=== PATIENT | female | born 1990 | race Caucasian/White ===

== ENCOUNTER 2017-02-14 16:32 | Emergency (ER) | payer BC ==
[2017-02-14 16:41] VITALS: RESP 18
--- NOTE | 2017-02-14 16:41 | EDPHY ---
H & P HPI/ROS: HPI CHIEF COMPLAINT: Lightheadedness, carpal pedal spasm status post plasma donation HISTORY OF PRESENT ILLNESS: This patient very pleasant 27-year-old female no significant medical history does not take any daily medications, presents emergency room with carpopedal spasm lightheadedness. This occurred right after she donated plasma. She states she donated plasma before this is her 4th time doing at this particular unit. She donated and felt lightheaded she was unsure if she was dehydrated prior to doing this. She denies chest pain shortness of breath denies syncope. Currently she feels better upon arrival by EMS. Clinical exam here she appears dehydrated. Past Medical History: No significant medical history Past Surgical History: no significant surgical history Social History: Denies daily use drugs alcohol tobacco products Family History: Noncontributory ROS REVIEW OF SYSTEMS: A comprehensive 10 point review of systems is otherwise negative aside from elements mentioned in the history of present illness. Exam Constitutional appears well nontoxic, triage nursing summary reviewed, vital signs reviewed, awake/alert. Eyes normal conjunctivae and sclera, EOMI, PERRLA. HENT normal inspection, atraumatic, mucous membranes dry , no epistaxis, neck supple/ no meningismus, no raccoon eyes. Respiratory clear to auscultation bilaterally, normal breath sounds, no respiratory distress, no wheezing. Cardiovascular rate normal, regular rhythm, no murmur, no edema, distal pulses normal. Gastrointestinal soft, non-tender, no rebound, no guarding, normal bowel sounds, no distension, no pulsatile mass. Genitourinary no CVA tenderness. Musculoskeletal no midline vertebral tenderness, full range of motion, no calf swelling, no tenderness of extremities, no meningismus, good pulses, neurovascularly intact. Skin pink, warm, & dry, no rash, skin atraumatic. Neurologic awake, alert and oriented x 3, AAOx3, moves all 4 extremities equally, motor intact, sensory intact, CN II-XII intact, normal cerebellar, normal vision, normal speech. Psychiatric normal mood/affect. Heme/Lymph/Immune no lymphadenopathy. Differential Diagnosis: Includes but is not limited to in a particular order dehydration, electrolyte disturbance, dehydration, volume loss Medical Decision Making: plan for this patient IV fluid bolus, basic blood work , full core maker. Re-evaluation: 1735: patient feeling better after IV fluids 1 L. No chest pain or shortness of breath. He is tells me her lightheadedness is resolved. Plan for this patient is to road test. If she ambulates well without any symptoms or lower to go home. Drink lots of fluids stay. Return emergency room if any worsening symptoms including syncope, worsening lightheadedness, chest pain or shortness of breath she understands. Source: Patient, EMS Constitutional: Initial Vital Signs Temperature (C) 36.7 C 02/14/17 16:39 Heart Rate 91 02/14/17 16:39 Respiratory Rate 18 02/14/17 16:39 Blood Pressure 152/80 H 02/14/17 16:39 O2 Sat (%) 95 02/14/17 16:39 O2 Delivery Mode Room Air Allergies/Adverse Reactions: No Known Allergies Allergy (Unverified 02/14/17 16:38) Home Medications: Medication Instructions Recorded Bcp 02/14/17 Medical Decision Making - Data Points Laboratory Results: Laboratory Results 02/14/17 16:30 02/14/17 16:47 02/14/17 02/14/17 16:47 16:30 WBC 10.36 10^3/uL H 10^3/uL (3.80-9.50) RBC 5.36 10^6/uL H 10^6/uL (4.18-5.33) Hgb 15.8 g/dL g/dL (12.6-16.3) Hct 47.0 % % (38.0-47.0) MCV 87.7 fL fL (81.5-99.8) MCH 29.5 pg pg (27.9-34.1) MCHC 33.6 g/dL g/dL (32.4-36.7) RDW 13.1 % % (11.5-15.2) Plt Count 515 10^3/uL H 10^3/uL (150-400) MPV 10.3 fL fL (8.7-11.7) Neut % (Auto) 53.9 % % (39.3-74.2) Lymph % (Auto) 30.7 % % (15.0-45.0) Traill % (Auto) 5.9 % % (4.5-13.0) Eos % (Auto) 8.2 % H % (0.6-7.6) Baso % (Auto) 0.9 % % (0.3-1.7) Nucleat RBC Rel Count 0.0 % % (0.0-0.2) Absolute Neuts (auto) 5.59 10^3/uL 10^3/uL (1.70-6.50) Absolute Lymphs (auto) 3.18 10^3/uL H 10^3/uL (1.00-3.00) Absolute Monos (auto) 0.61 10^3/uL 10^3/uL (0.30-0.80) Absolute Eos (auto) 0.85 10^3/uL H 10^3/uL (0.03-0.40) Absolute Basos (auto) 0.09 10^3/uL 10^3/uL (0.02-0.10) Absolute Nucleated RBC 0.00 10^3/uL 10^3/uL (0-0.01) Immature Gran % 0.4 % % (0.0-1.1) Immature Gran # 0.04 10^3/uL 10^3/uL (0.00-0.10) Sodium 136 mEq/L mEq/L (134-144) Potassium 3.9 mEq/L mEq/L (3.5-5.2) Chloride 103 mEq/L mEq/L (97-110) Carbon Dioxide 19 mEq/l L mEq/l (22-31) Anion Gap 14 mEq/L mEq/L (8-16) BUN 13 mg/dL mg/dL (7-23) Creatinine 0.8 mg/dL mg/dL (0.6-1.0) Estimated GFR > 60 Glucose 132 mg/dL H mg/dL (70-100) Calcium 9.0 mg/dL mg/dL (8.5-10.4) Medications Given: Discontinued Medications Sodium Chloride (Ns) 1,000 mls @ 0 mls/hr IV ONCE ONE PRN Reason: Wide Open Stop: 02/14/17 16:48 Last Admin: 02/14/17 16:52 Dose: 1,000 mls Departure - Departure Disposition: Home, Routine, Self-Care Clinical Impression: Dehydration Condition: Good Instructions: Dehydration (ED) Additional Instructions: 1. drink lots of fluids today. 2.Return emergency room if you have any worsening symptoms questions or concerns. Referrals: Patient,NotPresent [Unknown] - As per Instructions
[2017-02-14] MEDS ORDERED: NS 1,000 ML IV ONE (16:47)
[2017-02-14 16:57] LABS: % IMMATURE GRANULYOCYTES 0.4 % (0.0-1.1); ABSOLUTE IMMATURE GRANULOCYTES 0.04 10^3/uL (0.00-0.10); ADD DIFF? NO; ADD MORPH? NO; ADD SCAN? NO; ATYPICAL LYMPHOCYTE FLAG 20 (0-99); FRAGMENT RBC FLAG 0 (0-99); HEMOGLOBIN 15.8 g/dL (12.6-16.3); LEFT SHIFT FLG 0 (0-99); LIPEMIA HEMOLYSIS FLAG 80 (0-99); MEAN CELL HEMOGLOBIN 29.5 pg (27.9-34.1); MEAN CELL HEMOGLOBIN CONCENTR. 33.6 g/dL (32.4-36.7); MEAN CELL VOLUME 87.7 fL (81.5-99.8); MEAN PLATELET VOLUME 10.3 fL (8.7-11.7); PLATELET CLUMPS FLAG 10 (0-99); PLATELET COUNT 515 10^3/uL (150-400); RED BLOOD CELL COUNT 5.36 10^6/uL (4.18-5.33); RED CELL DISTRIBUTION WIDTH 13.1 % (11.5-15.2)
[2017-02-14 17:17] LABS: ANION GAP 14 mEq/L (8-16); CARBON DIOXIDE 19 mEq/l (22-31); CHLORIDE 103 mEq/L (97-110); CREATININE 0.8 mg/dL (0.6-1.0); GLOMERULAR FILTRATION RATE > 60; GLUCOSE 132 mg/dL (70-100); POTASSIUM 3.9 mEq/L (3.5-5.2); SODIUM 136 mEq/L (134-144)
[2017-02-14 17:53] VITALS: BP 125/70; PULSE 78; TEMP 98.8; O2SAT 96
== END 2017-02-14 17:52 | disposition home or self-care (01) ==
LOC: EDUNIT#
DX: E86.0 Dehydration (principal)